=== PATIENT | female | born 1955 | race Caucasian/White ===

== ENCOUNTER 2016-10-03 18:38 | Inpatient (IN) | payer OTHER ==
[~2016-10-03] VITALS: Ht 160 cm; Wt 64.0 kg
[~2016-10-03 18:38] MED LIST: ATROVENT INH S2.5 ML INH; CEFUROXIME500 MG PO; CYMBALTA60 MG PO; DOCU LIQUI50 MG/5 ML PO; DULERA 200 MCG8.8 GM INH; HABITROL 21 MG P1 EA TOP; HYDROCHLOROTHIA25 MG PO; KLONOPIN TAB 00.5 MG PO; KLOR-CON 1010 MEQ PO; LOPRESSOR 50 MG50 MG PO; MEDROL4 MG PO; MIRALAX17 GM PO; PROTONIX 40 MG40 M1 PO; PROVENTIL HFA 61 INH INH; TUDORZA PRESS400 MCG INH; TYLENOL 500 MG500 MG PO
[2016-10-03] MEDS ORDERED: KLOR-CON 1010 MEQ PO (20:24)
[2016-10-03] MEDS ORDERED: CALCIUM600 MG PO (20:24)
[2016-10-03] MEDS ORDERED: RANITIDINE HCL150 M1 PO (20:24)
[2016-10-03] MEDS ORDERED: VITAMIN D2000 UNIT PO (20:25)
[2016-10-03] MEDS ORDERED: VOLTAREN100 GM TP (20:25)
[2016-10-03 20:42] LABS: RED BLOOD COUNT 4.61 M/UL (4.00-5.10); WHITE BLOOD COUNT 8.5 K/UL (4.5-11.0)
[2016-10-03 21:09] LABS: BUN/CREATININE RATIO 10 (0-10)
[2016-10-04 03:53] LABS: HEMOGLOBIN 13.7 gm/dl (12.3-15.3); RED BLOOD COUNT 4.53 M/UL (4.00-5.10); WHITE BLOOD COUNT 7.1 K/UL (4.5-11.0)
[2016-10-04 04:15] LABS: BUN/CREATININE RATIO 18 (0-10)
[2016-10-06] MEDS ORDERED: ATROVENT INH S2.5 ML INH (09:47)
[2016-10-06] MEDS ORDERED: MEDROL DOSEPAK 24 MG PO (09:53)
[2016-10-06] MEDS ORDERED: HABITROL 14 MG P1 EA TP (09:56)
== END 2016-10-06 10:57 | disposition home health service (06) | DRG 189 ==
LOC: PROG CARE 18:38 → CCU 10-04 07:45
PROVIDERS: ADMIT Emergency Medicine
DX: J96.21 Acute and chronic respiratory failure with hypoxia (principal); J44.0 Chronic obstructive pulmonary disease with (acute) lower respiratory infection; J44.1 Chronic obstructive pulmonary disease with (acute) exacerbation; J20.9 Acute bronchitis, unspecified; J96.22 Acute and chronic respiratory failure with hypercapnia; F17.210 Nicotine dependence, cigarettes, uncomplicated; I10 Essential (primary) hypertension; F41.9 Anxiety disorder, unspecified; Z80.3 Family history of malignant neoplasm of breast; Z80.9 Family history of malignant neoplasm, unspecified; Z82.49 Family history of ischemic heart disease and other diseases of the circulatory system; Z84.89 Family history of other specified conditions; Z83.3 Family history of diabetes mellitus; Z88.5 Allergy status to narcotic agent; Z88.3 Allergy status to other anti-infective agents; Z88.8 Allergy status to other drugs, medicaments and biological substances; Z79.51 Long term (current) use of inhaled steroids; Z79.899 Other long term (current) drug therapy; G89.29 Other chronic pain; M54.5 Low back pain
CPT/HCPCS: 36415; 36600; 71020; 80048; 80053; 82803; 83880; 85025; 85027; 94640; 94660; 94664; J0456; J0696; J2920; J2930; J7030; J7050

== ENCOUNTER → 2016-10-16 | Outpatient (CLI) | payer OTHER ==
[~2016-10-16] MED LIST changes: +CALCIUM600 MG PO; +HABITROL 14 MG P1 EA TP; +MEDROL DOSEPAK 24 MG PO; +RANITIDINE HCL150 M1 PO; +VITAMIN D2000 UNIT PO; +VOLTAREN100 GM TP
== END ==
LOC: RT 15:54
DX: Z72.0 Tobacco use (principal)
CPT/HCPCS: 36600; 82803

== ENCOUNTER → 2016-12-12 | Outpatient (CLI) | payer OTHER | LOC: RAD 17:30 | DX: M54.5 Low back pain (principal); M25.551 Pain in right hip; M16.11 Unilateral primary osteoarthritis, right hip; M85.88 Other specified disorders of bone density and structure, other site; K59.00 Constipation, unspecified | CPT/HCPCS: 72100; 73502 ==

== ENCOUNTER 2020-09-23 10:26 | Inpatient (IN) | payer MEDICARE, SELFPAY ==
[~2020-09-23] VITALS: Ht 162.6 cm; Wt 44.5 kg
[~2020-09-23 10:26] MED LIST changes: +CELEXA10 MG PO; -CYMBALTA60 MG PO; +DULERA 100 MCG8.8 GM INH; -DULERA 200 MCG8.8 GM INH; +K-DUR TAB 20 M20 MEQ PO; +NAPROSYN500 MG PO; +SPIRIVA RESPIMAT4 GM INH; -VOLTAREN100 GM TP
[2020-09-23 11:04] LABS: HEMOGLOBIN 14.6 gm/dl (12.3-15.3); RED BLOOD COUNT 4.7 M/UL (4.00-5.10); WHITE BLOOD COUNT 16.8 K/UL (4.5-11.0)
[2020-09-23 11:35] LABS: BUN/CREATININE RATIO 13 (0-10)
[2020-09-23] MEDS ORDERED: ALBUTEROL2.5 MG/3 M NEB (13:13)
[2020-09-23] MEDS ORDERED: TYLENOL EXTRA500 MG PO (13:13)
[2020-09-23] MEDS ORDERED: IBUPROFEN200 M1 PO (13:14)
[2020-09-23] MEDS ORDERED: VOLTAREN100 GM TP (20:25)
[2020-09-24 02:49] LABS: HEMOGLOBIN 12.7 gm/dl (12.3-15.3); WHITE BLOOD COUNT 12.8 K/UL (4.5-11.0)
[2020-09-24 02:52] LABS: RED BLOOD COUNT 4.13 M/UL (4.00-5.10)
[2020-09-24 03:14] LABS: BUN/CREATININE RATIO 18 (0-10)
[2020-09-25 06:43] LABS: RED BLOOD COUNT 4.07 M/UL (4.00-5.10)
[2020-09-25 07:21] LABS: BUN/CREATININE RATIO 16 (0-10)
[2020-09-25 20:04] LABS: BORDETELLA PARAPERTUSSIS Not Detected (Not Detectd); BORDETELLA PERTUSSIS Not Detected (Not Detectd); CHLAMYDIA PNEUMONIAE Not Detected (Not Detectd); CORONAVIRUS HKU1 Not Detected (Not Detectd); CORONAVIRUS NL63 Not Detected (Not Detectd); CORONAVIRUS OC43 Not Detected (Not Detectd); CORONOAVIRUS 229E Not Detected (Not Detectd); HUMAN METAPNEUMOVIRUS Not Detected (Not Detectd); HUMAN RHINOVIRUS/ENTEROVIRUS Not Detected (Not Detectd); INFLUENZA A Not Detected (Not Detectd); INFLUENZA B Not Detected (Not Detectd); MYCOPLASMA PNEUMONIAE Not Detected (Not Detectd); PARAINFLUENZA VIRUS 1 Not Detected (Not Detectd); PARAINFLUENZA VIRUS 2 Not Detected (Not Detectd); PARAINFLUENZA VIRUS 3 Not Detected (Not Detectd); PARAINFLUENZA VIRUS 4 Not Detected (Not Detectd); RESPIRATORY SYNCYTIAL VIRUS Not Detected (Not Detectd)
[2020-09-25 21:00] LABS: SARS-CoV-2 NOT DETECTED (Not Detectd)
[2020-09-26 07:01] LABS: HEMOGLOBIN 12.6 gm/dl (12.3-15.3); RED BLOOD COUNT 4.17 M/UL (4.00-5.10); WHITE BLOOD COUNT 7.5 K/UL (4.5-11.0)
[2020-09-26 07:18] LABS: BUN/CREATININE RATIO 19 (0-10)
[2020-09-27 06:25] LABS: HEMOGLOBIN 11.8 gm/dl (12.3-15.3); RED BLOOD COUNT 3.93 M/UL (4.00-5.10); WHITE BLOOD COUNT 6.6 K/UL (4.5-11.0)
[2020-09-27 06:48] LABS: BUN/CREATININE RATIO 16 (0-10)
[2020-09-28 02:55] LABS: HEMOGLOBIN 11.8 gm/dl (12.3-15.3); RED BLOOD COUNT 3.9 M/UL (4.00-5.10); WHITE BLOOD COUNT 6.8 K/UL (4.5-11.0)
[2020-09-28 03:14] LABS: BUN/CREATININE RATIO 14 (0-10)
[2020-09-29 13:09] LABS: ORGANISM ID Not indicated. (.); SPECIMEN SOURCE Urine (.); STREPTOCOCCUS PNEUMONIAE AG Negative (Negative)
--- NOTE | 2020-09-29 14:57 | NUR ---
1345 Patient's 02 sat 87% on room air.
[2020-09-29 18:05] LABS: HEMOGLOBIN 11.8 gm/dl (12.3-15.3); RED BLOOD COUNT 3.95 M/UL (4.00-5.10)
[2020-09-29 18:14] LABS: BUN/CREATININE RATIO 20 (0-10)
[2020-09-30 04:38] LABS: HEMOGLOBIN 11.1 gm/dl (12.3-15.3); RED BLOOD COUNT 3.68 M/UL (4.00-5.10); WHITE BLOOD COUNT 6.4 K/UL (4.5-11.0)
[2020-09-30 04:48] LABS: BUN/CREATININE RATIO 24 (0-10)
[2020-10-01 06:23] LABS: HEMOGLOBIN 11.7 gm/dl (12.3-15.3); RED BLOOD COUNT 3.88 M/UL (4.00-5.10); WHITE BLOOD COUNT 6.8 K/UL (4.5-11.0)
[2020-10-01 07:14] LABS: BUN/CREATININE RATIO 22 (0-10)
[2020-10-02 03:38] LABS: HEMOGLOBIN 11.8 gm/dl (12.3-15.3); RED BLOOD COUNT 3.9 M/UL (4.00-5.10); WHITE BLOOD COUNT 7.3 K/UL (4.5-11.0)
[2020-10-02 03:56] LABS: BUN/CREATININE RATIO 15 (0-10)
[2020-10-03 09:41] LABS: HEMOGLOBIN 11.9 gm/dl (12.3-15.3); RED BLOOD COUNT 3.97 M/UL (4.00-5.10); WHITE BLOOD COUNT 6.5 K/UL (4.5-11.0)
[2020-10-03 10:25] LABS: BUN/CREATININE RATIO 25 (0-10)
[2020-10-04 03:39] LABS: HEMOGLOBIN 11.7 gm/dl (12.3-15.3); RED BLOOD COUNT 3.95 M/UL (4.00-5.10); WHITE BLOOD COUNT 7.7 K/UL (4.5-11.0)
[2020-10-04 03:59] LABS: BUN/CREATININE RATIO 25 (0-10)
[2020-10-04] MEDS ORDERED: IPRAT-ALBUT 0.5-3 ML NEB ×2 (11:21→11:43)
[2020-10-04] MEDS ORDERED: DOCUSATE SODIU100 MG PO (11:21)
[2020-10-04] MEDS ORDERED: PROTONIX 40 MG40 M1 PO (11:21)
[2020-10-04] MEDS ORDERED: MEGACE 400400 MG/10 PO (11:21)
[2020-10-04] MEDS ORDERED: ZOFRAN4 MG PO (11:50)
--- NOTE | 2020-10-04 12:58 | NUR ---
INSTRUCTED ON ALL MEDS, AND FOLLOW UP APPOINTMENTS. DIAGNOSIS DISCUSSED WITH PATIENT, AND LAB FOR CHEST XRAY. VERBALIZED UNDERSTANDING. Duncan HELM,
== END 2020-10-04 14:50 | disposition home health service (06) | DRG 871 ==
LOC: ER1 10:26 → CDU 12:14 → MED SURG 4 19:25
PROVIDERS: Emergency Medicine; Internal Medicine; Physician Assistant Medical; ADMIT Internal Medicine
DX: A41.52 Sepsis due to Pseudomonas (principal); J96.21 Acute and chronic respiratory failure with hypoxia; J15.1 Pneumonia due to Pseudomonas; J15.7 Pneumonia due to Mycoplasma pneumoniae; J44.1 Chronic obstructive pulmonary disease with (acute) exacerbation; J44.0 Chronic obstructive pulmonary disease with (acute) lower respiratory infection; J90 Pleural effusion, not elsewhere classified; E87.1 Hypo-osmolality and hyponatremia; E46 Unspecified protein-calorie malnutrition; Z68.1 Body mass index [BMI] 19.9 or less, adult; R65.20 Severe sepsis without septic shock; K21.9 Gastro-esophageal reflux disease without esophagitis; E55.9 Vitamin D deficiency, unspecified; Z20.822 Contact with and (suspected) exposure to COVID-19; E87.6 Hypokalemia; R07.81 Pleurodynia; D69.6 Thrombocytopenia, unspecified; F41.9 Anxiety disorder, unspecified; D72.829 Elevated white blood cell count, unspecified; R59.1 Generalized enlarged lymph nodes; Z99.81 Dependence on supplemental oxygen; Z87.891 Personal history of nicotine dependence; Z88.6 Allergy status to analgesic agent; Z88.1 Allergy status to other antibiotic agents
CPT/HCPCS: 36415; 71045; 71046; 71250; 71260; 80048; 80053; 82550; 82553; 82607; 82962; 83605; 83735; 83874; 83880; 84439; 84443; 84484; 85025; 85027; 85379; 86140; 86738; 87040; 87070; 87077; 87186; 87205; 87278; 87633; 87899; 93005; 94640; 94664; 94760; 96365; 96366; 96374; 96375; 96376; 97110; 97116; 97116-GP-CQ; 97161; 97166; 97535; 99285; G0378; J0456; J1650; J2185; J2270; J2405; J2543; J2550; J7030; Q9967; U0002

== ENCOUNTER → 2020-11-04 | Outpatient (CLI) | payer MEDICARE, SELFPAY ==
[~2020-11-04] MED LIST changes: +ALBUTEROL2.5 MG/3 M NEB; +DOCUSATE SODIU100 MG PO; +IBUPROFEN200 M1 PO; +IPRAT-ALBUT 0.5-3 ML NEB; +MEGACE 400400 MG/10 PO; +TYLENOL EXTRA500 MG PO; +VOLTAREN100 GM TP; +ZOFRAN4 MG PO
== END ==
LOC: EXRD 10:51
DX: Z09 Encounter for follow-up examination after completed treatment for conditions other than malignant neoplasm (principal); Z87.01 Personal history of pneumonia (recurrent)
CPT/HCPCS: 71046